=== PATIENT | male | born 1990 | race African-American/Black ===

== ENCOUNTER 2017-01-28 21:39 | Emergency (ER) | payer SELFPAY ==
[2017-01-28 22:01] VITALS: BMI 21.2
[2017-01-29] MEDS ORDERED: ONDANSETRON *ODT* 4 MG TABLET SL ONE (00:21)
[2017-01-29] MEDS ORDERED: IBUPROFEN 400 MG TABLET (FP) PO ONE ×2 (00:21→00:52)
--- NOTE | 2017-01-29 00:22 | PDOC ---
History of Present Illness - General History Source: Patient <Antoine Conrad - Last Filed: 01/29/17 01:00> - General History Source: Patient Exam Limitations: No Limitations - History of Present Illness Initial Comments: 01/29/17 00:25 The patient is a 26 year old male with significant past medical history of asthma who presents to the ED for nausea, headache, and nonradiating chest discomfort few hours prior to arrival. Patient denies abdominal pain, vomiting, or diarrhea. He denies changes in vision or dizziness. Denies any fever, chills , diaphoresis, or SOB. States he did not take any medications for his symptoms. Allergies: NKDA Social History: No alcohol, tobacco, or drug use reported. Past Surgical History: None reported PCP: None reported <Niesha Lr - Last Filed: 01/29/17 01:15> - General Chief Complaint: Nausea/Vomiting Stated Complaint: NAUSEA/VOMITING Time Seen by Provider: 01/29/17 00:21 Past History - Past Medical History Asthma: Yes - Immunization History Immunization Up to Date: Yes - Psycho/Social/Smoking Cessation Hx Suicidal Ideation: No Smoking History: Never smoked Have you smoked in the past 12 months: No Information on smoking cessation initiated: No Hx Alcohol Use: No Drug/Substance Use Hx: No Substance Use Type: None <Antoine Conrad - Last Filed: 01/29/17 01:00> <Niesha Lr - Last Filed: 01/29/17 01:15> - Past Medical History Allergies/Adverse Reactions: Allergies Allergy/AdvReac Type Severity Reaction Status Date / Time No Known Allergies Allergy Verified 01/28/17 21:55 Home Medications: Ambulatory Orders Ibuprofen 800 mg PO TID #30 tablet 01/29/17 Ondansetron [Zofran *Odt*] 4 mg SL TID #30 od.tablet 01/29/17 Review of Systems - Review of Systems Able to Perform ROS?: Yes Comments:: 01/29/17 00:25 CONSTITUTIONAL: Absent: fever, no chills, no fatigue EYES: Absent: visual changes ENT: Absent: ear pain, no sore throat CARDIOVASCULAR: +chest discomfort Absent: no palpitations RESPIRATORY: Absent: cough, no SOB GI: +nausea Absent: abdominal pain, no vomiting, no constipation, no diarrhea GENITOURINARY: Absent: dysuria, no frequency, no hematuria MUSCULOSKELETAL: Absent: back pain, no arthralgia, no myalgia SKIN: Absent: rash NEURO: +headache <CorbywallyNiesha - Last Filed: 01/29/17 01:15> *Physical Exam - Vital Signs Last Vital Signs Temp Pulse Resp BP Pulse Ox 97.4 F L 59 L 16 134/66 100 01/28/17 21:56 01/28/17 21:56 01/28/17 21:56 01/28/17 21:56 01/28/17 21:56 <Antoine Conrad - Last Filed: 01/29/17 01:00> - Vital Signs Last Vital Signs Temp Pulse Resp BP Pulse Ox 97.4 F L 59 L 16 134/66 100 01/28/17 21:56 01/28/17 21:56 01/28/17 21:56 01/28/17 21:56 01/28/17 23:06 - Physical Exam Comments: 01/29/17 00:25 GENERAL: Well-appearing, well-nourished. No apparent distress. HEENT: Normocephalic, atraumatic. PERRL, EOM intact. CARDIOVASCULAR: Normal S1, S2. Regular rate and rhythm. PULMONARY: Clear to auscultation bilaterally. ABDOMEN: Soft, non-distended, non-tender. EXTREMITIES: Normal ROM in all four extremities. No gross deformities. SKIN: Warm, dry. No rash NEUROLOGICAL: No focal neurological deficits. <CorbywallyEdNiesha - Last Filed: 01/29/17 01:15> Heart Score/ECG Review - ECG Impressions Comment:: 01/29/17 00:42 Sinus bradycardia with sinus arrhythmia @51bpm Rightward axis Nonspecific intraventricular conduction delay Borderline ECG <CorbywallyNiesha - Last Filed: 01/29/17 01:15> Medical Decision Making - Medical Decision Making 01/29/17 01:00 Dr. Conrad: The scribe's documentation has been prepared under my direction and personally reviewed by me in its entirery. I confirm that the note above accurately reflects all work, treatment, procedures, and medical decision making performed by me. Pt feels better and will be discharged. Rx Zofran and Motrin transmitted to pharmacy <Antoine Conrad - Last Filed: 01/29/17 01:00> *DC/Admit/Observation/Transfer - Discharge Dispostion Admit: No <Antoine Conrad - Last Filed: 01/29/17 01:00> - Attestations Scribe Attestion: 01/29/17 00:25 Documentation prepared by Niesha Lr, acting as ophthalmic medical technologist for Antoine Conrad MD/DO. <Niesha Lr - Last Filed: 01/29/17 01:15> Diagnosis at time of Disposition: Nausea & vomiting Qualifiers: Vomiting type: unspecified Vomiting Intractability: unspecified Qualified Code( s): R11.2 - Nausea with vomiting, unspecified - Discharge Dispostion Disposition: HOME Condition at time of disposition: Improved - Prescriptions Prescriptions: Ibuprofen 800 mg PO TID #30 tablet Ondansetron [Zofran *Odt*] 4 mg SL TID #30 od.tablet - Patient Instructions Printed Discharge Instructions: DI for Nausea -- Adult, DI for Vomiting -- Adult
[2017-01-29] MEDS ORDERED: ONDANSETRON *ODT* 4 MG TABLET ONE (00:51)
[2017-01-29 01:08] VITALS: BP 132/64; PULSE 62; TEMP 97.6
--- NOTE | 2017-01-29 12:42 | EKG ---
Test Reason : Blood Pressure : / mmHG Vent. Rate : 051 BPM Atrial Rate : 051 BPM P-R Int : 206 ms QRS Dur : 120 ms QT Int : 438 ms P-R-T Axes : 082 097 072 degrees QTc Int : 403 ms SINUS BRADYCARDIA WITH SINUS ARRHYTHMIA RIGHTWARD AXIS NON-SPECIFIC INTRA-VENTRICULAR CONDUCTION DELAY BORDERLINE ECG NO PREVIOUS ECGS AVAILABLE Confirmed by KATHLEEN PLASENCIA MD ([id number]) on 01/29/2017 12:42:02 PM Referred By: Confirmed By:KATHLEEN PLASENCIA MD
== END 2017-01-29 01:11 | disposition home or self-care (01) ==
LOC: JERFT 21:39 → JER 21:39
DX: J45.909 Unspecified asthma, uncomplicated (principal)
CPT/HCPCS: 93005; 93010; 99282-25

== ENCOUNTER 2022-03-21 21:26 | Emergency (ER) | payer OTHER ==
[2022-03-21 21:35] VITALS: BP 103/65; PULSE 76; RESP 18; TEMP 97.8; BMI 21.2
== END 2022-03-22 00:33 | disposition home or self-care (01) ==
LOC: JERFT 21:26
DX: J01.90 Acute sinusitis, unspecified (principal)
CPT/HCPCS: 99281-25

== ENCOUNTER 2024-02-11 10:53 | Emergency (ER) | payer OTHER ==
[2024-02-11 11:00] VITALS: BP 102/45; PULSE 74; RESP 17; TEMP 98.3; BMI 23.1
[2024-02-11] MEDS ORDERED: ONDANSETRON 4 MG/2 ML VIAL ONE (11:27)
[2024-02-11] MEDS ORDERED: MAG HYDROX/AL HYDROX/SIMETH 30 ML UNIT-DOSE CUP ONE (11:28)
[2024-02-11] MEDS ORDERED: FAMOTIDINE 20 MG/50 ML IVPB 20 MG/50 ML MG IVPB ONE ×2 (11:28)
[2024-02-11] MEDS: ONDANSETRON 4 MG/2 ML VIAL IVPB ONE (12:01)
[2024-02-11] MEDS: FAMOTIDINE 20 MG/50 ML IVPB 20 MG in PREMIX 50 IVPB ONE (12:01)
[2024-02-11] MEDS: MAG HYDROX/AL HYDROX/SIMETH -MYLANTA- ORAL SUSPENSION PO ONE (12:01)
[2024-02-11] MEDS: SODIUM CHLORIDE 1,000 ML IV ONE (12:02)
[2024-02-11 12:10] LABS: BASO % 0.4 % (0-2.0); EOS % 1.9 % (0-4.5); HEMOGLOBIN 14.4 GM/dL (11.7-16.9); LYMPH % 27.6 % (8-40); MCHC 32.8 g/dl (32.0-35.9); MEAN CELL VOLUME 91.4 fl (80-96); MEAN PLT VOLUME 7.9 fl (7.5-11.1); MONO % 6.1 % (3.8-10.2); PLATELET COUNT 255 10^3/uL (134-434); RBC 4.81 M/mm3 (4.00-5.60); RDW 13.9 % (11.9-15.9); WHITE BLOOD COUNT 6.1 K/mm3 (4.0-10.0)
[2024-02-11 12:28] LABS: POTASSIUM 4.6 mmol/L (3.5-5.1)
[2024-02-11 12:30] LABS: ALBUMIN 3.9 g/dl (3.4-5.0); BLOOD UREA NITROGEN 18.8 mg/dL (7-18); CALCIUM 9.3 mg/dL (8.5-10.1)
[2024-02-11 12:33] LABS: CREATININE 1.3 mg/dL (0.55-1.3)
[2024-02-11 12:35] LABS: BILIRUBIN,TOTAL 0.5 mg/dL (0.2-1); TOT PROT 7.2 g/dl (6.4-8.2)
== END 2024-02-11 14:46 | disposition home or self-care (01) ==
LOC: JER 10:53
PROC: 3E033GC Introduction of Other Therapeutic Substance into Peripheral Vein, Percutaneous Approach (ICD-10-PCS; principal; 2024-02-11)
PROC: 3E033GC Introduction of Other Therapeutic Substance into Peripheral Vein, Percutaneous Approach (ICD-10-PCS; 2024-02-11)
PROC: 3E0337Z Introduction of Electrolytic and Water Balance Substance into Peripheral Vein, Percutaneous Approach (ICD-10-PCS; 2024-02-11)
DX: K29.20 Alcoholic gastritis without bleeding (principal); F10.188 Alcohol abuse with other alcohol-induced disorder; Y90.9 Presence of alcohol in blood, level not specified; R10.13 Epigastric pain; R11.0 Nausea; R19.7 Diarrhea, unspecified
CPT/HCPCS: 36415; 76705-TC; 80053; 83690; 85025; 99284-25

== ENCOUNTER 2024-03-03 05:47 | Emergency (ER) | payer OTHER ==
[2024-03-03 05:50] VITALS: BP 119/68; PULSE 85; TEMP 97.8; BMI 23.1
[2024-03-03] MEDS: ALBUTEROL SO4 2.5/IPRATROPIUM 0.5 INH SOL 3 ML VIAL.NEB. NEB SCH (06:00)
[2024-03-03] MEDS ORDERED: methylPREDNISolone NA SUCC 125 MG/2 ML VIAL ONE (06:06)
[2024-03-03] MEDS: methylPREDNISolone NA SUCC 125 MG/2 ML VIAL IVPUSH ONE (06:13)
[2024-03-03 06:55] VITALS: RESP 18
== END 2024-03-03 07:17 | disposition home or self-care (01) ==
LOC: JER 05:47
PROC: 3E033GC Introduction of Other Therapeutic Substance into Peripheral Vein, Percutaneous Approach (ICD-10-PCS; principal; 2024-03-03)
PROC: 3E0F7GC Introduction of Other Therapeutic Substance into Respiratory Tract, Via Natural or Artificial Opening (ICD-10-PCS; 2024-03-03)
DX: R06.02 Shortness of breath (principal); J45.901 Unspecified asthma with (acute) exacerbation; Z20.822 Contact with and (suspected) exposure to COVID-19
CPT/HCPCS: 0241U-QW; 71045-TC-FY; 99284-25

== ENCOUNTER 2024-07-06 15:22 | Emergency (ER) | payer OTHER ==
[2024-07-06 15:36] VITALS: BP 116/60; PULSE 81; RESP 20; TEMP 98.4; BMI 21.9
[2024-07-06] MEDS ORDERED: ONDANSETRON *ODT* 4 MG TABLET ONE ×2 (16:57→17:05)
[2024-07-06] MEDS ORDERED: ONDANSETRON 8 MG TABLET (FP) PO ONE (16:58)
[2024-07-06] MEDS: ONDANSETRON *ODT* 4 MG TABLET SL ONE (17:26)
[2024-07-06 19:23] LABS: HIV INTERPRETATION NEGATIVE (NEGATIVE)
== END 2024-07-06 17:38 | disposition home or self-care (01) ==
LOC: JER 15:22
DX: S00.83XA Contusion of other part of head, initial encounter (principal); R53.81 Other malaise; R42 Dizziness and giddiness; R00.2 Palpitations; R11.0 Nausea; W01.198A Fall on same level from slipping, tripping and stumbling with subsequent striking against other object, initial encounter
CPT/HCPCS: 36415; 86803; 87389; 93005; 93010; 99284-25; Q0162